=== PATIENT | female | born 1990 | race Caucasian/White ===

== ENCOUNTER → 2016-08-15 | Outpatient (CLI) | payer OTHER ==
--- NOTE | 2016-08-15 16:30 | US ---
Ultrasound of the Abdomen Limited History: Fever, right upper quadrant Abdominal pain. R 10.9 Findings: Gallbladder: No shadowing calculi, wall thickening, or pericholecystic fluid. Common bile duct is 3.5 mm in diameter which is normal. Liver: Homogeneous in echogenicity without definite focal lesions and measures 14 cm in length. Renal: Right kidney measures 10 x 5 x 5 cm without hydronephrosis. Right kidney upper pole benign 8 x 7 x 7 mm cortical cyst. Pancreas: Obscured by bowel gas. Aorta: Visualized upper abdominal aorta demonstrates no aneurysm. Impression: No cholelithiasis or biliary ductal dilation. A Call Requested test result notification was sent via the [employer] service, 4:28:22 PM, 08/15/2016, [employer] Message ID [id number].
== END ==
LOC: FIMAGING 10:27
PROVIDERS: ATTEND Nurse Practitioner
DX: R10.11 Right upper quadrant pain (principal); R50.9 Fever, unspecified